=== PATIENT | female | born 1975 | race Caucasian/White ===

== ENCOUNTER 2017-11-28 11:53 | Emergency (ER) | payer MEDICAID ==
[2017-11-28 12:23] LABS: HEMATOCRIT 45.3 % (36.0-48.0); HEMOGLOBIN 15.3 g/dL (12-16); LYMPHOCYTES 32.5 % (15-50); MCH 31.7 pg (26.0-34.0); MCHC 33.8 g/dL (31.0-37.0); MCV 93.8 fL (80.0-100.0); MEAN PLATELET VOLUME 9.4 fL (7.4-10.4); NEUTROPHILS 61.4 % (40-80); PLATELET COUNT 244 10x3/uL (130-400); RBC 4.83 10x6/uL (4.00-5.40); RDW 13.3 % (11.5-14.5); WBC 6.4 10x3/uL (4.8-10.8)
[2017-11-28 12:42] LABS: ALBUMIN 4.2 g/dL (3.4-5.0); ALKALINE PHOSPHATASE 54 U/L (46-116); ALT (SGPT) 37 U/L (10-68); BILIRUBIN - TOTAL 0.63 mg/dL (0.2-1.3); CALC OSMOLALITY 273 mosm/kg (275-300); CALCIUM 9.2 mg/dL (8.5-10.1); CARBON DIOXIDE 21.7 mmol/L (21.0-32.0); CHLORIDE - SERUM 102 mmol/L (98-107); CREATININE - SERUM 0.7 mg/dL (0.6-1.3); GLUCOSE 88 mg/dL (74-106); POTASSIUM - SERUM 3.9 mmol/L (3.5-5.1); PROTEIN - SERUM 7.5 g/dL (6.4-8.2); SODIUM 137 mmol/L (136-145); UREA NITROGEN 14 mg/dL (7-18); eGFR NON AFRICAN AMERICAN > 90 mL/min (90-120)
[2017-11-28 13:11] LABS: CKMB 0.6 U/L (0.0-3.6); CREATINE KINASE 146 UL (21-215); TROPONIN-I < 0.017 ng/mL (0.000-0.060)
== END 2017-11-28 16:44 | disposition home or self-care (01) ==
LOC: D.ER 11:53
PROVIDERS: Emergency Medicine
DX: R07.89 Other chest pain (principal); F41.9 Anxiety disorder, unspecified; R00.0 Tachycardia, unspecified; F17.200 Nicotine dependence, unspecified, uncomplicated